=== PATIENT | male | born 1985 ===

== ENCOUNTER 2018-11-09 17:16 | Emergency (ER) | payer OTHER ==
[2018-11-09 17:57] VITALS: BMI 35.5
[2018-11-09 18:09] VITALS: O2SAT 96
--- NOTE | 2018-11-09 18:17 | ED PDOC ---
Arrival/HPI - General Chief Complaint: Back Pain Time Seen by Provider: 11/09/18 17:35 Historian: Patient - History of Present Illness Narrative History of Present Illness (Text): 11/09/18 18:11 33yo male with no pmhx who present with complaint of lower back pain that started yesterday. Describes pain as sharp and only with movement. States pain started while getting out of his car yesterday. Notes that he took 2tabs of Advil this morning without relieve. Denies pervious history, saddle anesthesia, focal weakness, urinary symptoms, hematuria, urinary/fecal incontinence, abdominal pain, fever, chills, nausea, vomiting, any other complaint. Past Medical History - Provider Review Nursing Documentation Reviewed: Yes Family/Social History - Physician Review Nursing Documentation Reviewed: Yes Family/Social History: Unknown Family HX Allergies/Home Meds Allergies/Adverse Reactions: Allergies No Known Allergies Allergy (Verified 11/09/18 18:10) Review of Systems - Physician Review All systems were reviewed & negative as marked: Yes - Review of Systems Constitutional: Normal Eyes: Normal ENT: Normal Respiratory: Normal Cardiovascular: Normal Gastrointestinal: Normal Genitourinary Male: Normal Musculoskeletal: Back Pain Skin: Normal Neurological: Normal Endocrine: Normal Hemo/Lymphatic: Normal Psychiatric: Normal Physical Exam Vital Signs Reviewed: Yes Vital Signs Temp Pulse Resp BP Pulse Ox 11/09/18 18:08 97.9 F 78 18 130/76 96 Temperature: Afebrile Blood Pressure: Normal Pulse: Regular Respiratory Rate: Normal Appearance: Positive for: Well-Appearing, Non-Toxic, Comfortable Pain Distress: None Mental Status: Positive for: Alert and Oriented X 3 - Systems Exam Head: Present: Atraumatic, Normocephalic Pupils: Present: PERRL Extroacular Muscles: Present: EOMI Conjunctiva: Present: Normal Mouth: Present: Moist Mucous Membranes Neck: Present: Normal Range of Motion Respiratory/Chest: Present: Clear to Auscultation, Good Air Exchange. No: Respiratory Distress, Accessory Muscle Use Cardiovascular: Present: Regular Rate and Rhythm, Normal S1, S2. No: Murmurs Abdomen: No: Tenderness, Distention, Peritoneal Signs Back: Present: Paraspinal Tenderness (Right paralumbar tenderness), Pain with Leg Raise (B/L legs). No: Midline Tenderness Upper Extremity: Present: Normal Inspection. No: Cyanosis, Edema Lower Extremity: Present: Normal Inspection. No: Edema Neurological: Present: GCS=15, CN II-XII Intact, Speech Normal Skin: Present: Warm, Dry, Normal Color. No: Rashes Psychiatric: Present: Alert, Oriented x 3, Normal Insight, Normal Concentration Medical Decision Making ED Course and Treatment: 11/09/18 20:03 33yo male in ED for right sided lower back pain x 2days. Hi pain was reproducible in ED. He was neurological intact. Ambulatory LS xray UA LS xray No acute finding UA - Moderate blood. No infection. PT denied UTI symptoms in ED Secondary to the hematuria, abdominal/pelvic CT was ordered Case was endorsed to Dr. To to f/u CT and dispo pt - RAD Interpretation Radiology Orders: 11/09/18 18:10 LS SPINE WITH OBL > 18 YRS OLD [RAD] Stat Disposition/Present on Arrival - Present on Arrival Any Indicators Present on Arrival: No History of DVT/PE: No History of Uncontrolled Diabetes: No Urinary Catheter: No History of Decub. Ulcer: No History Surgical Site Infection Following: None - Disposition Have Diagnosis and Disposition been Completed?: Yes Diagnosis: Back pain Disposition: HOME/ ROUTINE Disposition Time: 19:35 Patient Plan: Discharge Patient Problems: Current Active Problems Problem Status Onset Back pain Acute Condition: STABLE Discharge Instructions (ExitCare): Low Back Pain (DC) Additional Instructions: Follow up with your Doctor/Orthopedist Rest, Apply warm compress to the area Return to ED for any worsening symptoms Prescriptions: Cyclobenzaprine [Cyclobenzaprine HCl] 10 mg PO BID #10 tab Ibuprofen [Motrin Tab] 600 mg PO Q6 #15 tab Referrals: Michelle Hamilton MD [Medical Doctor] - Follow up with primary Brannon Padilla MD [Staff Provider] - Follow up with primary Monique Napier MD [Staff Provider] - Follow up with primary Forms: [employer] (German)
[2018-11-09 18:37] LABS: URINE APPEARANCE CLEAR (CLEAR); URINE BILIRUBIN NEGATIVE (NEGATIVE); URINE BLOOD MODERATE (NEGATIVE); URINE COLOR YELLOW (YELLOW); URINE GLUCOSE (UA) NEGATIVE (NEGATIVE); URINE LEUKOCYTE ESTERASE NEGATIVE Leu/uL (NEGATIVE); URINE PROTEIN NEGATIVE mg/dL (<30 mg/dL); URINE UROBILINOGEN 0.2 E.U./dL (<1 E.U./dL)
[2018-11-09 18:41] LABS: URINE WBC NEGATIVE /hpf (0-6)
--- NOTE | 2018-11-09 20:02 | ED PDOC ---
Physical Exam Vital Signs Temp Pulse Resp BP Pulse Ox 11/09/18 18:08 97.9 F 78 18 130/76 96 Medical Decision Making ED Course and Treatment: 11/09/18 20:01 Signout received from [facility] with patient pending CT a/p. 11/09/18 23:08 CT a/p reveals no kidney stones, hydronephrosis, or perinephric stranding. Patient advised to continue conservative management at home alongside OTC analgesics. He demonstrates understanding and will follow up with his PCP. He is stable for discharge. - Lab Interpretations Lab Results: Lab Results 11/09/18 18:28: Urine Color Yellow, Urine Appearance Clear, Urine pH 6.0, Ur Specific [place] >= 1.030, Urine Protein Negative, Urine Glucose (UA) Negative, Urine Ketones Negative, Urine Blood Moderate H, Urine Nitrate Negative, Urine Bilirubin Negative, Urine Urobilinogen 0.2, Ur Leukocyte Esterase Negative, Urine RBC 2 - 5 H, Urine WBC Negative, Ur Epithelial Cells None I have reviewed the lab results: Yes - RAD Interpretation Radiology Orders: 11/09/18 18:10 LS SPINE WITH OBL > 18 YRS OLD [RAD] Stat 11/09/18 19:54 ABD & PELVIS W/O PO OR IV CONT [CT] Stat - Medication Orders Current Medication Orders: Discontinued Medications Cyclobenzaprine HCl (Flexeril) 10 mg PO STAT STA Stop: 11/09/18 18:11 Last Admin: 11/09/18 18:21 Dose: 10 mg Ketorolac Tromethamine (Toradol) 60 mg IM STAT STA Stop: 11/09/18 18:11 Last Admin: 11/09/18 18:21 Dose: 60 mg MAR Pain Assessment Document 11/09/18 18:21 ([facility]18 18[id number] Pain Reassessment Is this a pain reassessment? Yes Sleep Is patient sleeping during reassessment? No Presence of Pain Presence of Pain Yes Pain Scale Used Protocol: PSCALES Pain Scale Used Numeric IM Administration Charges Document 11/09/18 18:21 (Rec: 11/09/18 18:21 [id number] Charges for Administration # of IM Administrations 1 Disposition/Present on Arrival - Present on Arrival Any Indicators Present on Arrival: No History of DVT/PE: No History of Uncontrolled Diabetes: No Urinary Catheter: No History of Decub. Ulcer: No History Surgical Site Infection Following: None - Disposition Have Diagnosis and Disposition been Completed?: Yes Diagnosis: Back pain Disposition: HOME/ ROUTINE Disposition Time: 23:08 Patient Plan: Discharge Condition: STABLE Discharge Instructions (ExitCare): Low Back Pain (DC) Additional Instructions: Follow up with your Doctor/Orthopedist Rest, Apply warm compress to the area Return to ED for any worsening symptoms Prescriptions: Cyclobenzaprine [Cyclobenzaprine HCl] 10 mg PO BID #10 tab RX: Ibuprofen [Motrin Tab] 600 mg PO Q6 #15 tab Referrals: Monique Napier MD [Staff Provider] - Follow up with primary Brannon Padilla MD [Staff Provider] - Follow up with primary Michelle Hamilton MD [Medical Doctor] - Follow up with primary Forms: [employer] (Persian)
[2018-11-09 22:14] VITALS: BP 123/67; PULSE 63; RESP 20; TEMP 97.5
--- NOTE | 2018-11-10 09:15 | CT ---
Date of service: 11/09/2018 PROCEDURE: CT Abdomen and Pelvis without intravenous contrast HISTORY: hematuria/back pain COMPARISON: None. TECHNIQUE: Without contrast.. Contrast dose: Radiation dose: Total exam DLP = 1140.96 mGy-cm. This CT exam was performed using one or more of the following dose reduction techniques: Automated exposure control, adjustment of the mA and/or kV according to patient size, and/or use of iterative reconstruction technique. FINDINGS: LOWER THORAX: Unremarkable. LIVER: Unremarkable. No gross lesion or ductal dilatation. GALLBLADDER AND BILE DUCTS: Unremarkable. PANCREAS: Unremarkable. No gross lesion or ductal dilatation. SPLEEN: Unremarkable. ADRENALS: Unremarkable. No mass. KIDNEYS AND URETERS: Unremarkable. No hydronephrosis. No solid mass. VASCULATURE: Unremarkable. No aortic aneurysm. No aortic atherosclerotic calcification or mural plaque present. BOWEL: Unremarkable. No obstruction. No gross mural thickening. APPENDIX: Unremarkable. Normal appendix. PERITONEUM: Unremarkable. No free fluid. No free air. LYMPH NODES: Unremarkable. No enlarged lymph nodes. BLADDER: Unremarkable. REPRODUCTIVE: Unremarkable. BONES: No acute fracture. OTHER FINDINGS: The report concurs with the preliminary [facility] report IMPRESSION: Unremarkable non contrast enhanced CT of the abdomen and pelvis.
--- NOTE | 2018-11-10 11:22 | RAD ---
Date of service: 11/09/2018 PROCEDURE: Radiographs of the Lumbar Spine. HISTORY: back pain COMPARISON: No prior. FINDINGS: BONES: Normal alignment. No listhesis. No fracture. DISC SPACES: Unremarkable. OTHER FINDINGS: None. IMPRESSION: Unremarkable radiographs of the lumbar spine.
== END 2018-11-09 23:30 | disposition home or self-care (01) ==
LOC: ED 17:16
DX: M54.5 Low back pain (principal)
CPT/HCPCS: 72110; 74176; 81001; 96372; 99282; J1885

== ENCOUNTER 2018-12-02 09:21 | Inpatient (IN) | payer OTHER ==
[2018-12-02 09:22] VITALS: BMI 35.5
--- NOTE | 2018-12-02 10:02 | ED PDOC ---
Arrival/HPI - General Chief Complaint: Abnormal Skin Integrity Time Seen by Provider: 12/02/18 09:45 Historian: Patient - History of Present Illness Narrative History of Present Illness (Text): 12/02/18 9:53 Patient is a 33 year old male, with no significant past medical history, presents to the ED complaining of rectal pain since 5 days. Patient informs visiting his PMD Dr. Cisneros for the following symptoms and was started on Keflex since 3 days (Sunday). Patient informs compliance with the medication with no improvement to symptoms. Patient denies any history of similar symptoms. Patient describes the pain as dull, achy localized to the right of his anus. As per patient, symptoms are worse with bowel movement and sitting on his buttocks. Patient denies any pain medication at home. Patient denies any other associated somatic complaints. Patient denies any fever, chills, nausea, vomiting, diarrhea, abdominal pain, constipation, chest pain, dizziness, back pain, rectal bleeding, urinary symptoms or any other complaints. PMD: Dr. Cisneros Time/Duration: < week Symptom Onset: Gradual Symptom Course: Unchanged Quality: Aching Activities at Onset: Light Context: Home Past Medical History - Provider Review Nursing Documentation Reviewed: Yes - Psychiatric Hx Substance Use: No - Anesthesia Hx Anesthesia: No Hx Anesthesia Reactions: No Hx Malignant Hyperthermia: No Family/Social History - Physician Review Nursing Documentation Reviewed: Yes Family/Social History: No Known Family HX Smoking Status: Current Some Days Smoker Hx Alcohol Use: No Hx Substance Use: No Allergies/Home Meds Allergies/Adverse Reactions: Allergies No Known Allergies Allergy (Verified 11/09/18 18:10) Home Medications: Home Meds Medication Instructions Recorded Confirmed Cephalexin [cephalexin] 500 mg PO BID 12/02/18 12/02/18 Review of Systems - Physician Review All systems were reviewed & negative as marked: Yes - Review of Systems Constitutional: Normal. absent: Fevers Eyes: Normal. absent: Vision Changes ENT: Normal, Sinus Congestion Respiratory: Normal. absent: SOB, Cough Cardiovascular: Normal. absent: Chest Pain, Palpitations Gastrointestinal: Other (rectal pain). absent: Abdominal Pain, Constipation, Diarrhea, Nausea, Vomiting Genitourinary Male: Normal. absent: Dysuria, Hematuria, Urinary Output Changes Musculoskeletal: Normal. absent: Back Pain, Neck Pain Skin: Abscess. absent: Rash Neurological: Normal. absent: Headache, Dizziness Endocrine: Normal. absent: Diaphoresis Hemo/Lymphatic: Normal Psychiatric: Normal. absent: Anxiety Physical Exam Vital Signs Reviewed: Yes Vital Signs Temp Pulse Resp BP Pulse Ox 12/02/18 09:22 97.6 F 78 18 135/89 98 Temperature: Afebrile Blood Pressure: Normal Pulse: Regular Respiratory Rate: Normal Appearance: Positive for: Well-Appearing, Non-Toxic, Comfortable Pain Distress: None Mental Status: Positive for: Alert and Oriented X 3 - Systems Exam Head: Present: Atraumatic, Normocephalic Pupils: Present: PERRL Extroacular Muscles: Present: EOMI Conjunctiva: Present: Normal Respiratory/Chest: Present: Clear to Auscultation, Good Air Exchange. No: Respiratory Distress, Accessory Muscle Use Cardiovascular: Present: Regular Rate and Rhythm, Normal S1, S2. No: Murmurs Abdomen: No: Tenderness, Distention, Peritoneal Signs Rectal: Present: Rectal Tenderness, Normal Rectal Tone, Other (induration to the right side of his anus, no fluctuance, no redness noted. ). No: Hemorrhoids, Nodule/Mass/Lesions Back: Present: Normal Inspection Upper Extremity: Present: Normal Inspection. No: Cyanosis, Edema Lower Extremity: Present: Normal Inspection. No: Edema Neurological: Present: GCS=15, CN II-XII Intact, Speech Normal Skin: Present: Warm, Dry, Normal Color. No: Rashes Psychiatric: Present: Alert, Oriented x 3, Normal Insight, Normal Concentration Medical Decision Making ED Course and Treatment: 12/02/18 09:57 Initial Plan: * CBC, CMP * Coags * Pelvis CT with IV contrast * Toradol * Reassess and Disposition Labwork unremarkable Patient reports resolution of symptoms with toradol 13:14 Spoke to pharmacy resident, who is aware and will evaluate patient at bedside in the ED. 15:00 Resident will start patient on IV antibiotics and fluids, recommends admission to medical service. 16:[address] Diego who accepts patient to his service with diagnosis of perianal abscess, with general surgery consult. - Lab Interpretations Lab Results: 12/02/18 10:20 12/02/18 10:20 Lab Results 12/02/18 10:30: Urine Color Yellow, Urine Appearance Clear, Urine pH 6.0, Ur Specific [place] >= 1.030, Urine Protein Negative, Urine Glucose (UA) Negative, Urine Ketones Negative, Urine Blood Large H, Urine Nitrate Negative, Urine Bilirubin Negative, Urine Urobilinogen 0.2, Ur Leukocyte Esterase Negative, Urine RBC 25 - 30 H, Urine WBC 1 - 3, Ur Epithelial Cells None, Urine Bacteria Mod 12/02/18 10:20: PT 11.9, INR 1.05, APTT 37.1 12/02/18 10:20: Sodium 138, Potassium 5.0, Chloride 104, Carbon Dioxide 26, Anion Gap 14, BUN 11, Creatinine 0.8, Est GFR ( Amer) > 60, Est GFR (Non- Af Amer) > 60, Random Glucose 95, Calcium 9.5, Total Bilirubin 0.4, AST 40, ALT 77 H, Alkaline Phosphatase 66, Total Protein 8.0, Albumin 4.6, Globulin 3.4, Albumin/Globulin Ratio 1.3 12/02/18 10:20: WBC 9.8, RBC 4.96, Hgb 15.6, Hct 45.3, MCV 91.3, MCH 31.5, MCHC 34.4, RDW 13.0, Plt Count 351, MPV 9.7, Neut % (Auto) 68.0, Lymph % (Auto) 20.7 L, [place] % (Auto) 9.8 H, Eos % (Auto) 1.4 L, Baso % (Auto) 0.1, Lymph # (Auto) 2.0, [place] # (Auto) 1.0 H, Eos # (Auto) 0.1, Baso # (Auto) 0.01, Absolute Neuts (auto) 6.65 H I have reviewed the lab results: Yes - RAD Interpretation Narrative RAD Interpretations (Text): 12/02/18 13:[address] reviewed by radiologist, shows: FINDINGS: LOWER THORAX: Mild passive/dependent type atelectasis both posterior lower lung german. Heart size within range of normal. No significant pericardial effusion. Small hiatal hernia. LIVER: Liver is enlarged measuring approximately 20 cm in CC dimension. Mild to moderate fatty hepatic infiltration.. No obvious hepatic masses or collections. Portal and splenic veins are opacified. GALLBLADDER AND BILE DUCTS: Gallbladder physiologically distended. No evidence of intraluminal gallbladder calculi. PANCREAS: Unremarkable. No mass. No ductal dilatation. SPLEEN: Unremarkable. No splenomegaly. There is a small splenule adjacent to the anterior main body of the spleen. ADRENALS: No adrenal lesions. KIDNEYS AND URETERS: Kidneys demonstrate symmetric nephrograms. No evidence of nephrolithiasis or hydronephrosis. BLADDER: Urinary bladder is incompletely distended which partially accounts for minimal wall thickness. Muscular hypertrophy may contribute. REPRODUCTIVE: Unremarkable. APPENDIX: Normal appendix. BOWEL: Evaluation of the bowel is somewhat limited due to the lack of oral contrast material. Stomach is incompletely distended. Visualized loops of small bowel exhibit normal contour and caliber. No evidence of acute mechanical small bowel obstruction. Stool and air seen throughout the large bowel. Scattered colonic diverticula present. There is a small elliptical shaped soft tissue density in the right perianal region that the measures approximately 2.5 x 11 mm and contains a eccentric smaller elliptical shaped low-attenuation focus that measures approximately 8.7 x 4.8 mm likely representing a phlegmon with a internal smaller abscess. PERITONEUM: Unremarkable. No fluid collection. No free air.. Tiny fat containing umbilical hernia small fat containing bilateral inguinal hernias are present. LYMPH NODES: Unremarkable. No enlarged lymph nodes. VASCULATURE: Unremarkable. No aortic aneurysm. No aortic atherosclerotic calcification or mural plaque present. BONES: Minor multilevel degenerative spondylosis of the lower thoracic and lumbar spine. OTHER FINDINGS: None. IMPRESSION: There is a small perianal phlegmon at contains a smaller slightly eccentric abscess collection. The hepatomegaly with fatty infiltration. Radiology Orders: 12/02/18 09:54 PELVIS W/IV CONTRAST ONLY [CT] Stat Intelligence Officer: Radiologist - PA / [employer] OPERATOR / Resident Statement MD/DO has reviewed & agrees with the documentation as recorded. - Scribe Statement The provider has reviewed the documentation as recorded by the Moniibivelisse Velez. All medical record entries made by the Yolis were at my direction and personally dictated by me. I have reviewed the chart and agree that the record a ccurately reflects my personal performance of the history, physical exam, medical decision making, and the department course for this patient. I have also personally directed, reviewed, and agree with the discharge instructions and disposition. Disposition/Present on Arrival - Present on Arrival Any Indicators Present on Arrival: No History of DVT/PE: No History of Uncontrolled Diabetes: No Urinary Catheter: No History of Decub. Ulcer: No History Surgical Site Infection Following: None - Disposition Have Diagnosis and Disposition been Completed?: Yes Diagnosis: Perianal abscess Disposition: HOSPITALIZED Disposition Time: 15:00 Patient Plan: Admission Condition: STABLE
[2018-12-02 10:40] LABS: BASO # 0.01 K/mm3 (0.0-2.0); BASO % 0.1 % (0.0-3.0); EOS # 0.1 (0.0-0.7); EOS % 1.4 % (1.5-5.0); HEMOGLOBIN 15.6 g/dL (14.0-18.0); LYMPH % 20.7 % (22.0-35.0); MEAN CELL VOLUME 91.3 fl (80.0-105.0); MEAN CORPUSCULAR HEMOGLOBIN 31.5 pg (25.0-35.0); MEAN CORPUSCULAR HGB CONC 34.4 g/dl (31.0-37.0); MEAN PLATELET VOLUME 9.7 fl (7.0-11.0); MONO % 9.8 % (1.0-6.0); RBC 4.96 10^6/uL (3.5-6.1); WHITE BLOOD COUNT 9.8 10^3/uL (4.5-11.0)
[2018-12-02 10:41] LABS: URINE BILIRUBIN NEGATIVE (NEGATIVE); URINE BLOOD LARGE (NEGATIVE); URINE GLUCOSE (UA) NEGATIVE (NEGATIVE); URINE LEUKOCYTE ESTERASE NEGATIVE Leu/uL (NEGATIVE); URINE PROTEIN NEGATIVE mg/dL (<30 mg/dL); URINE UROBILINOGEN 0.2 E.U./dL (<1 E.U./dL)
[2018-12-02 10:42] LABS: URINE APPEARANCE CLEAR (CLEAR); URINE COLOR YELLOW (YELLOW)
[2018-12-02 10:45] LABS: INR 1.05; PARTIAL THROMBOPLASTIN TIME 37.1 Seconds (26.9-38.3); PROTHROMBIN TIME 11.9 SECONDS (9.4-12.5)
[2018-12-02 10:46] LABS: ALB/GLOB RATIO 1.3 (1.1-1.8); ALBUMIN 4.6 g/dL (3.0-4.8); ALT/SGPT 77 U/L (7-56); AST/SGOT 40 U/L (17-59); BLOOD UREA NITROGEN 11 mg/dL (7-21); CALCIUM 9.5 mg/dL (8.4-10.5); GFR NON-AFRICAN AMERICAN > 60
[2018-12-02 11:02] LABS: URINE BACTERIA MOD /hpf; URINE RBC 25 - 30 /hpf (0-2)
--- NOTE | 2018-12-02 13:02 | CT ---
Date of service: 2018-12-02 12:02:52 PROCEDURE: CT Abdomen and Pelvis with Oral contrast. HISTORY: Possible right-sided perianal/rectal abscess. COMPARISON: Comparison made with prior study 11/09/2018. TECHNIQUE: Contiguous axial images of the abdomen and pelvis. Oral contrast was administered. No IV contrast given. Coronal and Sagittal reformats generated. Radiation dose: Total exam DLP = 1038.57 mGy-cm. This CT exam was performed using one or more of the following dose reduction techniques: Automated exposure control, adjustment of the mA and/or kV according to patient size, and/or use of iterative reconstruction technique. FINDINGS: LOWER THORAX: Mild passive/dependent type atelectasis both posterior lower lung german. Heart size within range of normal. No significant pericardial effusion. Small hiatal hernia. LIVER: Liver is enlarged measuring approximately 20 cm in CC dimension. Mild to moderate fatty hepatic infiltration.. No obvious hepatic masses or collections. Portal and splenic veins are opacified. GALLBLADDER AND BILE DUCTS: Gallbladder physiologically distended. No evidence of intraluminal gallbladder calculi. PANCREAS: Unremarkable. No mass. No ductal dilatation. SPLEEN: Unremarkable. No splenomegaly. There is a small splenule adjacent to the anterior main body of the spleen. ADRENALS: No adrenal lesions. KIDNEYS AND URETERS: Kidneys demonstrate symmetric nephrograms. No evidence of nephrolithiasis or hydronephrosis. BLADDER: Urinary bladder is incompletely distended which partially accounts for minimal wall thickness. Muscular hypertrophy may contribute. REPRODUCTIVE: Unremarkable. APPENDIX: Normal appendix. BOWEL: Evaluation of the bowel is somewhat limited due to the lack of oral contrast material. Stomach is incompletely distended. Visualized loops of small bowel exhibit normal contour and caliber. No evidence of acute mechanical small bowel obstruction. Stool and air seen throughout the large bowel. Scattered colonic diverticula present. There is a small elliptical shaped soft tissue density in the right perianal region that the measures approximately 2.5 x 11 mm and contains a eccentric smaller elliptical shaped low-attenuation focus that measures approximately 8.7 x 4.8 mm likely representing a phlegmon with a internal smaller abscess. PERITONEUM: Unremarkable. No fluid collection. No free air.. Tiny fat containing umbilical hernia small fat containing bilateral inguinal hernias are present. LYMPH NODES: Unremarkable. No enlarged lymph nodes. VASCULATURE: Unremarkable. No aortic aneurysm. No aortic atherosclerotic calcification or mural plaque present. BONES: Minor multilevel degenerative spondylosis of the lower thoracic and lumbar spine. OTHER FINDINGS: None. IMPRESSION: There is a small perianal phlegmon at contains a smaller slightly eccentric abscess collection. The hepatomegaly with fatty infiltration.
--- NOTE | 2018-12-02 14:55 | CP.PCM.CON ---
History of Present Illness - History of Present Illness History of Present Illness: Surgery consult note, Dr Chandra Reason for consult: Perianal phlegom 33 y/o male with no significant PMH presents to ED with perianal pain x5 days. It's dull, intermittent, 9/10 at worst, exacerbated by walking or prolonged sitting, partially relieved with motrin and cold compressions, associated with wormth around the area. Patient denied any trauma/infection, no prior similar symptoms. Patient was seen by his PMD who prescribed keflex with no improvement for the past 3 days. He admits to foul smelling urine for the past 2 weeks with no dysurea/urgency/frequency. Patient denied any focal symptoms, paresthesia, muscle weakness, fever, chills, CP, SOB, abdominal pain, changes in bowel movement, N/V/D, hematochezia, melena, hematuria. ROS reviewed with pertinent positives as above PMH: denied PSH: denied Meds: keflex, ibuprofen All: NKDA FH: father with DM, mom with breast CA SH: occasionally drinks ETOH, somkes <10 cigarettes/day, denied illicit drug use Past Patient History - Past Social History Smoking Status: Current Some Days Smoker - PSYCHIATRIC Hx Substance Use: No - SURGICAL HISTORY Hx Surgeries: No - ANESTHESIA Hx Anesthesia: No Hx Anesthesia Reactions: No Hx Malignant Hyperthermia: No Meds Allergies/Adverse Reactions: Allergies Allergy/AdvReac Type Severity Reaction Status Date / Time No Known Allergies Allergy Verified 11/09/18 18:10 Physical Exam - Constitutional Appears: Well, No Acute Distress - Head Exam Head Exam: ATRAUMATIC, NORMAL INSPECTION, NORMOCEPHALIC - Eye Exam Eye Exam: EOMI, Normal appearance, PERRL Pupil Exam: NORMAL ACCOMODATION, PERRL - ENT Exam ENT Exam: Mucous Membranes Moist, Normal Exam - Neck Exam Neck exam: Positive for: Normal Inspection - Respiratory Exam Respiratory Exam: Clear to Auscultation Bilateral, NORMAL BREATHING PATTERN - Cardiovascular Exam Cardiovascular Exam: REGULAR RHYTHM, +S1, +S2 - GI/Abdominal Exam GI & Abdominal Exam: Normal Bowel Sounds, Soft. absent: Guarding, Hernia, Organomegaly, Rebound, Rigid, Tenderness - Rectal Exam Additional comments: perianal subcutaneous mass at 2'oclock position about 1.5 cm in diameter. tender to palpate, intact skin, no erythema, no wound/fistula, no discharge. normal rectal tone - Extremities Exam Extremities exam: Positive for: normal capillary refill, normal inspection, pedal pulses present - Neurological Exam Neurological exam: Alert, Oriented x3 - Psychiatric Exam Psychiatric exam: Normal Affect, Normal Mood - Skin Skin Exam: Dry, Intact, Normal Color, Warm Results - Vital Signs Recent Vital Signs: Last Vital Signs Temp 97.6 F 12/02/18 09:22 Pulse 69 12/02/18 13:18 Resp 18 12/02/18 13:18 BP 133/96 H 12/02/18 13:18 Pulse Ox 97 12/02/18 13:18 - Labs Result Diagrams: 12/02/18 10:20 12/02/18 10:20 Labs: Laboratory Results - last 24 hr 12/02/18 12/02/18 12/02/18 10:20 10:20 10:20 WBC 9.8 RBC 4.96 Hgb 15.6 Hct 45.3 MCV 91.3 MCH 31.5 MCHC 34.4 RDW 13.0 Plt Count 351 MPV 9.7 Neut % (Auto) 68.0 Lymph % (Auto) 20.7 L [place] % (Auto) 9.8 H Eos % (Auto) 1.4 L Baso % (Auto) 0.1 Lymph # (Auto) 2.0 [place] # (Auto) 1.0 H Eos # (Auto) 0.1 Baso # (Auto) 0.01 Absolute Neuts (auto) 6.65 H PT 11.9 INR 1.05 APTT 37.1 Sodium 138 Potassium 5.0 Chloride 104 Carbon Dioxide 26 Anion Gap 14 BUN 11 Creatinine 0.8 Est GFR ( Amer) > 60 Est GFR (Non-Af Amer) > 60 Random Glucose 95 Calcium 9.5 Total Bilirubin 0.4 AST 40 ALT 77 H Alkaline Phosphatase 66 Total Protein 8.0 Albumin 4.6 Globulin 3.4 Albumin/Globulin Ratio 1.3 Urine Color Urine Appearance Urine pH Ur Specific [place] Urine Protein Urine Glucose (UA) Urine Ketones Urine Blood Urine Nitrate Urine Bilirubin Urine Urobilinogen Ur Leukocyte Esterase Urine RBC Urine WBC Ur Epithelial Cells Urine Bacteria 12/02/18 10:30 WBC RBC Hgb Hct MCV MCH MCHC RDW Plt Count MPV Neut % (Auto) Lymph % (Auto) [place] % (Auto) Eos % (Auto) Baso % (Auto) Lymph # (Auto) [place] # (Auto) Eos # (Auto) Baso # (Auto) Absolute Neuts (auto) PT INR APTT Sodium Potassium Chloride Carbon Dioxide Anion Gap BUN Creatinine Est GFR ( Amer) Est GFR (Non-Af Amer) Random Glucose Calcium Total Bilirubin AST ALT Alkaline Phosphatase Total Protein Albumin Globulin Albumin/Globulin Ratio Urine Color Yellow Urine Appearance Clear Urine pH 6.0 Ur Specific [place] >= 1.030 Urine Protein Negative Urine Glucose (UA) Negative Urine Ketones Negative Urine Blood Large H Urine Nitrate Negative Urine Bilirubin Negative Urine Urobilinogen 0.2 Ur Leukocyte Esterase Negative Urine RBC 25 - 30 H Urine WBC 1 - 3 Ur Epithelial Cells None Urine Bacteria Mod Assessment & Plan - Assessment and Plan (Free Text) Assessment: 33 y/o male with no significant PMH presents to ED with perianal pain x5 days. Failed outpatient keflex treatment Plan: -patient in NAD, hemodynamically stable, afebrile, no leukocytosis, no open wound/fisutla -CT A/P: small perianal phlegmon at contains a smaller slightly eccentric abscess collection -started cipro, flagyl, IVF -sitz bath, warm compressions, pain meds prn -regular diet -further recs per Dr Stephanie Gonzales DO
[2018-12-02] MEDS ORDERED: Sodium Chloride 0.9% 1,000 ML IV SCH (15:30)
[2018-12-02] MEDS: metroNIDAZOLE IV 500 mg/100 ml 500 MG/100 ML BAG IVPB SCH ×2 (15:41→21:26)
[2018-12-02] MEDS ORDERED: Ciprofloxacin 200mg/100ml D5W 100 ML IVPB SCH (22:00)
[2018-12-03] MEDS: metroNIDAZOLE IV 500 mg/100 ml 500 MG/100 ML BAG IVPB SCH (05:07)
--- NOTE | 2018-12-03 06:39 | CP.PCM.HP ---
History of Present Illness - History of Present Illness History of Present Illness: 33yo male with no PMHx presented with perianal pain x 5 days. 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 The pain was exacerbated by walking or prolonged sitting and alleviated by motrin and c old compressions. Patient denied any trauma/infection, no prior similar symptoms. Patient was seen by his PMD who prescribed keflex with no improvement for the past 3 days. He admits to foul smelling urine for the past 2 weeks with no dysurea/urgency/frequency. Patient denied any focal symptoms, paresthesia, muscle weakness, fever, chills, CP, SOB, abdominal pain, changes in bowel movement, N/V/D, hematochezia, melena, hematuria. Overnight patient had no acute complaints and this AM he reported pain was much improved. 12 point ROS reviewed and unremarkable unless stated above PMHx: denied PSurgHx: denied Meds: as per EMR All: NKDA FamHx: father with DM, mom with breast CA SocHx: occasionally drinks ETOH, somkes <10 cigarettes/day, denied illicit drug use Present on Admission - Present on Admission Any Indicators Present on Admission: No Review of Systems - Review of Systems All systems: reviewed and no additional remarkable complaints except Review of Systems: as per HPI Past Patient History - Past Social History Smoking Status: Current Some Days Smoker - CARDIAC Hx Cardiac Disorders: No - PULMONARY Hx Respiratory Disorders: No - NEUROLOGICAL Hx Neurological Disorder: No - HEENT Hx HEENT Problems: No Other/Comment: wears glasses - RENAL Hx Chronic Kidney Disease: No - ENDOCRINE/METABOLIC Hx Endocrine Disorders: No - HEMATOLOGICAL/ONCOLOGICAL Hx Blood Disorders: No - INTEGUMENTARY Hx Dermatological Problems: No - MUSCULOSKELETAL/RHEUMATOLOGICAL Hx Musculoskeletal Disorders: No Hx Falls: No - GASTROINTESTINAL Hx Gastrointestinal Disorders: No - GENITOURINARY/GYNECOLOGICAL Hx Genitourinary Disorders: No - PSYCHIATRIC Hx Substance Use: No - SURGICAL HISTORY Hx Surgeries: No - ANESTHESIA Hx Anesthesia: No Hx Anesthesia Reactions: No Hx Malignant Hyperthermia: No Meds Home Medications: Home Medication List Medication Instructions Recorded Confirmed Type Amoxicillin/Clavulanate [Augmentin 1 tab PO BID 7 Days #14 tab 12/03/18 Rx 875 MG-125 MG] Doxycycline Hyclate [Doryx] 100 mg PO BID 7 Days #14 cap 12/03/18 Rx Allergies/Adverse Reactions: Allergies Allergy/AdvReac Type Severity Reaction Status Date / Time No Known Allergies Allergy Verified 11/09/18 18:10 Physical Exam - Constitutional Appears: Non-toxic, No Acute Distress - Head Exam Head Exam: ATRAUMATIC, NORMAL INSPECTION, NORMOCEPHALIC - Eye Exam Eye Exam: EOMI, Normal appearance, PERRL. absent: Conjunctival injection, Scleral icterus - ENT Exam ENT Exam: Mucous Membranes Moist - Neck Exam Neck exam: Positive for: Full Rom, Normal Inspection. Negative for: Lymphadenopathy - Respiratory Exam Respiratory Exam: Clear to Auscultation Bilateral, NORMAL BREATHING PATTERN. a bsent: Accessory Muscle Use, Rales, Rhonchi, Wheezes, Respiratory Distress - Cardiovascular Exam Cardiovascular Exam: REGULAR RHYTHM, +S1, +S2 - GI/Abdominal Exam GI & Abdominal Exam: Normal Bowel Sounds, Soft. absent: Distended, Firm, Tenderness - Rectal Exam Additional comments: perianal subq mass ~1-2cm diameter; tender with no erythema/discharge - Extremities Exam Extremities exam: Positive for: normal capillary refill, normal inspection, pedal pulses present. Negative for: pedal edema - Back Exam Back exam: NORMAL INSPECTION. absent: rash noted, tenderness - Neurological Exam Neurological exam: Alert, CN II-XII Intact, Oriented x3 - Psychiatric Exam Psychiatric exam: Normal Affect, Normal Mood - Skin Skin Exam: Dry, Intact, Normal Color, Warm Results - Vital Signs Recent Vital Signs: Last Vital Signs Temp 97.6 F 12/02/18 09:22 Pulse 69 12/02/18 13:18 Resp 18 12/02/18 22:50 BP 133/96 H 12/02/18 13:18 Pulse Ox 98 12/02/18 19:00 - Labs Result Diagrams: 12/02/18 10:20 12/02/18 10:20 Labs: Laboratory Results - last 24 hr 12/02/18 12/02/18 12/02/18 10:20 10:20 10:20 WBC 9.8 RBC 4.96 Hgb 15.6 Hct 45.3 MCV 91.3 MCH 31.5 MCHC 34.4 RDW 13.0 Plt Count 351 MPV 9.7 Neut % (Auto) 68.0 Lymph % (Auto) 20.7 L [place] % (Auto) 9.8 H Eos % (Auto) 1.4 L Baso % (Auto) 0.1 Lymph # (Auto) 2.0 [place] # (Auto) 1.0 H Eos # (Auto) 0.1 Baso # (Auto) 0.01 Absolute Neuts (auto) 6.65 H PT 11.9 INR 1.05 APTT 37.1 Sodium 138 Potassium 5.0 Chloride 104 Carbon Dioxide 26 Anion Gap 14 BUN 11 Creatinine 0.8 Est GFR ( Amer) > 60 Est GFR (Non-Af Amer) > 60 Random Glucose 95 Calcium 9.5 Total Bilirubin 0.4 AST 40 ALT 77 H Alkaline Phosphatase 66 Total Protein 8.0 Albumin 4.6 Globulin 3.4 Albumin/Globulin Ratio 1.3 Urine Color Urine Appearance Urine pH Ur Specific [place] Urine Protein Urine Glucose (UA) Urine Ketones Urine Blood Urine Nitrate Urine Bilirubin Urine Urobilinogen Ur Leukocyte Esterase Urine RBC Urine WBC Ur Epithelial Cells Urine Bacteria 12/02/18 10:30 WBC RBC Hgb Hct MCV MCH MCHC RDW Plt Count MPV Neut % (Auto) Lymph % (Auto) [place] % (Auto) Eos % (Auto) Baso % (Auto) Lymph # (Auto) [place] # (Auto) Eos # (Auto) Baso # (Auto) Absolute Neuts (auto) PT INR APTT Sodium Potassium Chloride Carbon Dioxide Anion Gap BUN Creatinine Est GFR ( Amer) Est GFR (Non-Af Amer) Random Glucose Calcium Total Bilirubin AST ALT Alkaline Phosphatase Total Protein Albumin Globulin Albumin/Globulin Ratio Urine Color Yellow Urine Appearance Clear Urine pH 6.0 Ur Specific [place] >= 1.030 Urine Protein Negative Urine Glucose (UA) Negative Urine Ketones Negative Urine Blood Large H Urine Nitrate Negative Urine Bilirubin Negative Urine Urobilinogen 0.2 Ur Leukocyte Esterase Negative Urine RBC 25 - 30 H Urine WBC 1 - 3 Ur Epithelial Cells None Urine Bacteria Mod Assessment & Plan - Assessment and Plan (Free Text) Assessment: - small perianal phlegmon - tobacco abuse Plan: Patient admitted to med/surg. General surgery consulted. Pelvic CT revealed small perianal phlegmon containing smaller slightly eccentric abscess collection. Patient afebrile with no leukocytosis and no open wound/fistula. Surgery recommended sitz bath, warm compressions and prn pain medications. ID consulted who started patient on Vanc and Zosyn. Patient counseled on the importance of smoking cessation. Bowel regimen in place and patient tolerated good PO intake. Will continue to monitor at this time. Discussed with Dr. Murtaza Sweeney PGY3
[2018-12-03 09:00] VITALS: BP 99/63; PULSE 59; RESP 20; TEMP 98.2; O2SAT 99
--- NOTE | 2018-12-03 09:11 | CP.PCM.PN ---
Subjective - Date & Time of Evaluation Date of Evaluation: 12/03/18 Time of Evaluation: 07:10 - Subjective Subjective: Surgery progress note, Dr Brown Patient seen and examined at bedside. He reports some improvement in perianal pain. He has regular BM, tolerating diet, ambulating OOB. Patient denied fever, chills, abd pain, change in bowel movement, rectal bleeding. Objective - Vital Signs/Intake and Output Vital Signs (last 24 hours): Temp Pulse Resp BP Pulse Ox 97.6 F 69 18 133/96 H 98 12/02/18 09:22 12/02/18 13:18 12/02/18 22:50 12/02/18 13:18 12/02/18 19:00 - Medications Medications: Current Medications Metronidazole (Flagyl) 500 mg in 100 mls @ 100 mls/hr IVPB Q8 [facility]; Protocol Last Admin: 12/03/18 05:07 Dose: 100 mls/hr Sodium Chloride (Sodium Chloride 0.9%) 1,000 mls @ 100 mls/hr IV .Q10H [facility] Last Admin: 12/03/18 05:19 Dose: 100 mls/hr Ibuprofen (Motrin Tab) 600 mg PO Q6H PRN PRN Reason: Pain, moderate (4-7) Ketorolac Tromethamine (Toradol) 15 mg IVP Q6H PRN PRN Reason: Pain, severe (8-10) - Labs Labs: 12/02/18 10:20 12/02/18 10:20 PT 11.9 SECONDS (9.4-12.5) 12/02/18 10:20 INR 1.05 12/02/18 10:20 APTT 37.1 Seconds (26.9-38.3) 12/02/18 10:20 - Constitutional Appears: Well, No Acute Distress - Head Exam Head Exam: ATRAUMATIC, NORMAL INSPECTION, NORMOCEPHALIC - Eye Exam Eye Exam: EOMI, Normal appearance, PERRL Pupil Exam: NORMAL ACCOMODATION, PERRL - ENT Exam ENT Exam: Mucous Membranes Moist, Normal Exam - Cardiovascular Exam Cardiovascular Exam: REGULAR RHYTHM, +S1, +S2. absent: Murmur - GI/Abdominal Exam GI & Abdominal Exam: Soft, Normal Bowel Sounds. absent: Guarding, Rigid, Tenderness, Hernia, Mass, Organomegaly, Rebound - Rectal Exam Additional comments: perianal subcutaneous mass at 2'oclock position about 1 cm in diameter. tender to palpate, intact skin, no erythema, no wound/fistula, no discharge. - Extremities Exam Extremities Exam: Full ROM, Normal Capillary Refill, Normal Inspection. absent: Joint Swelling, Pedal Edema - Neurological Exam Neurological Exam: Alert, Awake - Psychiatric Exam Psychiatric exam: Normal Affect, Normal Mood - Skin Skin Exam: Dry, Intact, Normal Color, Warm Assessment and Plan - Assessment and Plan (Free Text) Assessment: 33 y/o male with no significant PMH presents to ED with perianal pain x5 days. Failed outpatient keflex treatment CT A/P: small perianal phlegmon at contains a smaller slightly eccentric abscess collection Patient in NAD, hemodynamically stable, afebrile, no leukocytosis, no open wound/fisutla Plan: -continue current managament cipro, flagyl, IVF -sitz bath, warm compressions, pain meds prn -regular diet -plan for discharge home later today. PO abx and outpatient follow up -further recs per Dr Stephanie Gonzales, DO
--- NOTE | 2018-12-03 09:38 | CP.PCM.CON ---
<Raymond Chavez - Last Filed: 12/03/18 12:12> History of Present Illness - History of Present Illness History of Present Illness: Infectious disease consult note: 33-year-old male with no past medical history presents to the emergency room with perianal pain. Patient states that his pain initially started 5 days ago and has gotten progressively worse. Pain is worse with walking and prolonged sitting. He has tried to take Motrin and cold compressions at home however has not alleviated his symptoms. He denies any prior trauma to the area. He did go to his PMD and was given Keflex however had no improvement over the past 3 days. He denies any fevers or chills. Infectious disease was consulted for perianal abscess and IV antibiotics management. 12 point ROS performed and negative other than stated above PMH: denied PSH: denied Meds: ibuprofen All: NKDA FH: father with DM, mom with breast CA SH: social drinks ETOH, smoker of 2 PP week, denied illicit drug use Review of Systems - Review of Systems All systems: reviewed and no additional remarkable complaints except Past Patient History - Past Social History Smoking Status: Current Some Days Smoker - CARDIAC Hx Cardiac Disorders: No - PULMONARY Hx Respiratory Disorders: No - NEUROLOGICAL Hx Neurological Disorder: No - HEENT Hx HEENT Problems: No Other/Comment: wears glasses - RENAL Hx Chronic Kidney Disease: No - ENDOCRINE/METABOLIC Hx Endocrine Disorders: No - HEMATOLOGICAL/ONCOLOGICAL Hx Blood Disorders: No - INTEGUMENTARY Hx Dermatological Problems: No - MUSCULOSKELETAL/RHEUMATOLOGICAL Hx Musculoskeletal Disorders: No Hx Falls: No - GASTROINTESTINAL Hx Gastrointestinal Disorders: No - GENITOURINARY/GYNECOLOGICAL Hx Genitourinary Disorders: No - PSYCHIATRIC Hx Substance Use: No - SURGICAL HISTORY Hx Surgeries: No - ANESTHESIA Hx Anesthesia: No Hx Anesthesia Reactions: No Hx Malignant Hyperthermia: No Meds Allergies/Adverse Reactions: Allergies Allergy/AdvReac Type Severity Reaction Status Date / Time No Known Allergies Allergy Verified 11/09/18 18:10 - Medications Medications: Current Medications Metronidazole (Flagyl) 500 mg in 100 mls @ 100 mls/hr IVPB Q8 [facility]; Protocol Last Admin: 12/03/18 05:07 Dose: 100 mls/hr Sodium Chloride (Sodium Chloride 0.9%) 1,000 mls @ 100 mls/hr IV .Q10H [facility] Last Admin: 12/03/18 05:19 Dose: 100 mls/hr Ibuprofen (Motrin Tab) 600 mg PO Q6H PRN PRN Reason: Pain, moderate (4-7) Ketorolac Tromethamine (Toradol) 15 mg IVP Q6H PRN PRN Reason: Pain, severe (8-10) Physical Exam - Constitutional Appears: No Acute Distress - Head Exam Head Exam: ATRAUMATIC, NORMOCEPHALIC - Eye Exam Eye Exam: EOMI - ENT Exam ENT Exam: Mucous Membranes Moist - Respiratory Exam Respiratory Exam: Clear to Auscultation Bilateral. absent: Wheezes - Cardiovascular Exam Cardiovascular Exam: REGULAR RHYTHM, +S1, +S2 - GI/Abdominal Exam GI & Abdominal Exam: Normal Bowel Sounds, Soft - Extremities Exam Extremities exam: Negative for: calf tenderness, pedal edema - Neurological Exam Neurological exam: Alert, CN II-XII Intact, Oriented x3 - Skin Skin Exam: Dry, Intact, Warm Additional comments: Perianal area, small area of erythema, no edema noted. Results - Vital Signs Recent Vital Signs: Last Vital Signs Temp 98.2 F 12/03/18 07:00 Pulse 59 L 12/03/18 07:00 Resp 20 12/03/18 07:00 BP 99/63 L 12/03/18 07:00 Pulse Ox 99 12/03/18 07:00 - Labs Result Diagrams: 12/02/18 10:20 12/02/18 10:20 Labs: Laboratory Results - last 24 hr 12/02/18 12/02/18 12/02/18 10:20 10:20 10:20 WBC 9.8 RBC 4.96 Hgb 15.6 Hct 45.3 MCV 91.3 MCH 31.5 MCHC 34.4 RDW 13.0 Plt Count 351 MPV 9.7 Neut % (Auto) 68.0 Lymph % (Auto) 20.7 L [place] % (Auto) 9.8 H Eos % (Auto) 1.4 L Baso % (Auto) 0.1 Lymph # (Auto) 2.0 [place] # (Auto) 1.0 H Eos # (Auto) 0.1 Baso # (Auto) 0.01 Absolute Neuts (auto) 6.65 H PT 11.9 INR 1.05 APTT 37.1 Sodium 138 Potassium 5.0 Chloride 104 Carbon Dioxide 26 Anion Gap 14 BUN 11 Creatinine 0.8 Est GFR ( Amer) > 60 Est GFR (Non-Af Amer) > 60 Random Glucose 95 Calcium 9.5 Total Bilirubin 0.4 AST 40 ALT 77 H Alkaline Phosphatase 66 Total Protein 8.0 Albumin 4.6 Globulin 3.4 Albumin/Globulin Ratio 1.3 Urine Color Urine Appearance Urine pH Ur Specific [place] Urine Protein Urine Glucose (UA) Urine Ketones Urine Blood Urine Nitrate Urine Bilirubin Urine Urobilinogen Ur Leukocyte Esterase Urine RBC Urine WBC Ur Epithelial Cells Urine Bacteria 12/02/18 10:30 WBC RBC Hgb Hct MCV MCH MCHC RDW Plt Count MPV Neut % (Auto) Lymph % (Auto) [place] % (Auto) Eos % (Auto) Baso % (Auto) Lymph # (Auto) [place] # (Auto) Eos # (Auto) Baso # (Auto) Absolute Neuts (auto) PT INR APTT Sodium Potassium Chloride Carbon Dioxide Anion Gap BUN Creatinine Est GFR ( Amer) Est GFR (Non-Af Amer) Random Glucose Calcium Total Bilirubin AST ALT Alkaline Phosphatase Total Protein Albumin Globulin Albumin/Globulin Ratio Urine Color Yellow Urine Appearance Clear Urine pH 6.0 Ur Specific [place] >= 1.030 Urine Protein Negative Urine Glucose (UA) Negative Urine Ketones Negative Urine Blood Large H Urine Nitrate Negative Urine Bilirubin Negative Urine Urobilinogen 0.2 Ur Leukocyte Esterase Negative Urine RBC 25 - 30 H Urine WBC 1 - 3 Ur Epithelial Cells None Urine Bacteria Mod Assessment & Plan - Assessment and Plan (Free Text) Assessment: 33-year-old male with no past medical history presents to the emergency room with perianal pain. CT Pelvis: small perianal phlegmon at contains a smaller slightly eccentric abscess collection. Infectious disease was consulted for perianal abscess and IV antibiotics management. D/c Flagyl; Started on zosyn Follow-up surgical recommendations Follow-up septic workup Continue to monitor Case and plan was reviewed and discussed with Dr. Aguilar <Rodrigo Aguilar - Last Filed: 12/03/18 13:58> Meds - Medications Medications: Current Medications Docusate Sodium (Colace) 100 mg PO DAILY [facility] Sodium Chloride (Sodium Chloride 0.9%) 1,000 mls @ 100 mls/hr IV .Q10H [facility] Last Admin: 12/03/18 05:19 Dose: 100 mls/hr Piperacillin Sod/Tazobactam Sod (Zosyn 3.375 In Ns 100ml) 100 mls @ 25 mls/hr IVPB Q8 [facility]; Protocol Stop: 12/10/18 14:01 Vancomycin HCl (Vancomycin 1gm) 1 gm in 250 mls @ 167 mls/hr IVPB Q12H [facility]; Protocol Ibuprofen (Motrin Tab) 600 mg PO Q6H PRN PRN Reason: Pain, moderate (4-7) Ketorolac Tromethamine (Toradol) 15 mg IVP Q6H PRN PRN Reason: Pain, severe (8-10) Results - Vital Signs Recent Vital Signs: Last Vital Signs Temp 98.2 F 12/03/18 07:00 Pulse 59 L 12/03/18 07:00 Resp 20 12/03/18 07:00 BP 99/63 L 12/03/18 07:00 Pulse Ox 99 12/03/18 07:00 - Labs Result Diagrams: 12/02/18 10:20 12/02/18 10:20 Assessment & Plan - Assessment and Plan (Free Text) Assessment: Infectious diseases Attending Physician Attestation Patient seen and examined, discussed with medical certification specialist. I have reviewed the patient's history of present illness, past medical, social, personal and family histories, pertinent physical exam findings, course so far in this hospital a dmission, pertinent laboratory and imaging results. I agree with the above findings, assessment and plan. In addition, started Vancomycin and Zosyn for patient with perianal abscess. Follow up surgery plans. Once it is drained, will follow up fluid cx. Will get HIV test due to his age.
[2018-12-03] MEDS ORDERED: Vancomycin 1gm in NS 250ml 1 GM/250 ML BAG IVPB SCH (14:00)
[2018-12-03] MEDS ORDERED: Piperacillin/Tazobact 3.375 gm 100 ML IVPB SCH (14:00)
--- NOTE | 2018-12-03 16:14 | CP.PCM.DIS ---
<Tiffany Sweeney - Last Filed: 12/03/18 17:47> Provider - Provider Date of Admission: 12/02/18 16:12 Attending physician: Benigno Hauser MD Primary care physician: Dr. Cisneros Consults: 12/02/18 13:14 General Surgery Consult Stat Comment: Consulting Provider: Conner Brown Consulting Physician: Conner Brown Reason for Consult: Perianal Abscess 12/03/18 08:15 Infectious Disease Consult Routine Comment: Consulting Provider: Rodrigo Aguilar Consulting Physician: Rodrigo Aguilar Reason for Consult: perianal abscess; abx management Time Spent in preparation of Discharge (in minutes): 35 Hospital Course - Lab Results Lab Results: Most Recent Lab Values WBC 9.8 10^3/uL (4.5-11.0) 12/02/18 10:20 RBC 4.96 10^6/uL (3.5-6.1) 12/02/18 10:20 Hgb 15.6 g/dL (14.0-18.0) 12/02/18 10:20 Hct 45.3 % (42.0-52.0) 12/02/18 10:20 MCV 91.3 fl (80.0-105.0) 12/02/18 10:20 MCH 31.5 pg (25.0-35.0) 12/02/18 10:20 MCHC 34.4 g/dl (31.0-37.0) 12/02/18 10:20 RDW 13.0 % (11.5-14.5) 12/02/18 10:20 Plt Count 351 10^3/uL (120.0-450.0) 12/02/18 10:20 MPV 9.7 fl (7.0-11.0) 12/02/18 10:20 Neut % (Auto) 68.0 % (50.0-68.0) 12/02/18 10:20 Lymph % (Auto) 20.7 % (22.0-35.0) L 12/02/18 10:20 Parke % (Auto) 9.8 % (1.0-6.0) H 12/02/18 10:20 Eos % (Auto) 1.4 % (1.5-5.0) L 12/02/18 10:20 Baso % (Auto) 0.1 % (0.0-3.0) 12/02/18 10:20 Lymph # (Auto) 2.0 (1.2-3.4) 12/02/18 10:20 Parke # (Auto) 1.0 (0.1-0.6) H 12/02/18 10:20 Eos # (Auto) 0.1 (0.0-0.7) 12/02/18 10:20 Baso # (Auto) 0.01 K/mm3 (0.0-2.0) 12/02/18 10:20 Absolute Neuts (auto) 6.65 (1.4-6.5) H 12/02/18 10:20 PT 11.9 SECONDS (9.4-12.5) 12/02/18 10:20 INR 1.05 12/02/18 10:20 APTT 37.1 Seconds (26.9-38.3) 12/02/18 10:20 Sodium 138 mmol/L (132-148) 12/02/18 10:20 Potassium 5.0 mmol/L (3.6-5.0) 12/02/18 10:20 Chloride 104 mmol/L (98-107) 12/02/18 10:20 Carbon Dioxide 26 mmol/L (21-33) 12/02/18 10:20 Anion Gap 14 (10-20) 12/02/18 10:20 BUN 11 mg/dL (7-21) 12/02/18 10:20 Creatinine 0.8 mg/dl (0.8-1.5) 12/02/18 10:20 Est GFR ( Amer) > 60 12/02/18 10:20 Est GFR (Non-Af Amer) > 60 12/02/18 10:20 Random Glucose 95 mg/dL (70-110) 12/02/18 10:20 Calcium 9.5 mg/dL (8.4-10.5) 12/02/18 10:20 Total Bilirubin 0.4 mg/dL (0.2-1.3) 12/02/18 10:20 AST 40 U/L (17-59) 12/02/18 10:20 ALT 77 U/L (7-56) H 12/02/18 10:20 Alkaline Phosphatase 66 U/L (38-126) 12/02/18 10:20 Total Protein 8.0 g/dL (5.8-8.3) 12/02/18 10:20 Albumin 4.6 g/dL (3.0-4.8) 12/02/18 10:20 Globulin 3.4 gm/dL 12/02/18 10:20 Albumin/Globulin Ratio 1.3 (1.1-1.8) 12/02/18 10:20 Urine Color Yellow (YELLOW) 12/02/18 10:30 Urine Appearance Clear (CLEAR) 12/02/18 10:30 Urine pH 6.0 (4.7-8.0) 12/02/18 10:30 Ur Specific Chandler >= 1.030 (1.005-1.035) 12/02/18 10:30 Urine Protein Negative mg/dL (<30 mg/dL) 12/02/18 10:30 Urine Glucose (UA) Negative mg/dL (NEGATIVE) 12/02/18 10:30 Urine Ketones Negative mg/dL (NEGATIVE) 12/02/18 10:30 Urine Blood Large (NEGATIVE) H 12/02/18 10:30 Urine Nitrate Negative (NEGATIVE) 12/02/18 10:30 Urine Bilirubin Negative (NEGATIVE) 12/02/18 10:30 Urine Urobilinogen 0.2 E.U./dL (<1 E.U./dL) 12/02/18 10:30 Ur Leukocyte Esterase Negative Noemi/uL (NEGATIVE) 12/02/18 10:30 Urine RBC 25 - 30 /hpf (0-2) H 12/02/18 10:30 Urine WBC 1 - 3 /hpf (0-6) 12/02/18 10:30 Ur Epithelial Cells None /hpf (0-5) 12/02/18 10:30 Urine Bacteria Mod /hpf (NONE) 12/02/18 10:30 - Hospital Course Hospital Course: Upon Admission 33yo male with no PMHx presented with perianal pain x 5 days. 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 The pain was exacerbated by walking or prolonged sitting and alleviated by motrin and cold compressions. Patient denied any trauma/infection, no prior similar symptoms. Patient was seen by his PMD who prescribed keflex with no improvement for the past 3 days. He admits to foul smelling urine for the past 2 weeks with no dysurea/urgency/frequency. Patient denied any focal symptoms, paresthesia, muscle weakness, fever, chills, CP, SOB, abdominal pain, changes in bowel movement, N/V/D, hematochezia, melena, hematuria. Hospital Course Patient admitted to med/surg. General surgery consulted. Pelvic CT revealed small perianal phlegmon containing smaller slightly eccentric abscess collection. Patient afebrile with no leukocytosis and no open wound/fistula. Surgery recommended sitz bath, warm compressions and prn pain medications. ID consulted who started patient on Vanc and Zosyn. Patient counseled on the importance of smoking cessation. Bowel regimen in place and patient tolerated good PO intake. Patient clinically improved, was afebrile, with no leukocytosis and was eager to go home. On day of discharge patient deemed medically optimized for discharge home. Discharge Instructions You are being discharged from [facility]. Please take the following antibiotics as prescribed: -Doxycycline 100mg 1 tab by mouth twice daily for 7 days -Augmentin 875 1 tab by mouth twice daily for 7 days Please continue Sitz baths. Please follow up with surgeon Dr. Brown within 7-10 days. Please also follow up with your PMD Dr. Cisneros within 7-10 days. If symptoms return please visit your nearest Emergency Room. Instructions discussed in detail with patient who understood and agreed Please note this is a d/c summary. For full hospital course please refer to EMR. Discharge Exam - Head Exam Head Exam: ATRAUMATIC, NORMOCEPHALIC - Additional Findings Additional findings: - Constitutional Appears: Non-toxic, No Acute Distress - Head Exam Head Exam: ATRAUMATIC, NORMAL INSPECTION, NORMOCEPHALIC - Eye Exam Eye Exam: EOMI, Normal appearance, PERRL. absent: Conjunctival injection, Scleral icterus - ENT Exam ENT Exam: Mucous Membranes Moist - Neck Exam Neck exam: Positive for: Full Rom, Normal Inspection. Negative for: Lymphadenopathy - Respiratory Exam Respiratory Exam: Clear to Auscultation Bilateral, NORMAL BREATHING PATTERN. absent: Accessory Muscle Use, Rales, Rhonchi, Wheezes, Respiratory Distress - Cardiovascular Exam Cardiovascular Exam: REGULAR RHYTHM, +S1, +S2 - GI/Abdominal Exam GI & Abdominal Exam: Normal Bowel Sounds, Soft. absent: Distended, Firm, Tenderness - Extremities Exam Extremities exam: Positive for: normal capillary refill, normal inspection, pedal pulses present. Negative for: pedal edema - Back Exam Back exam: NORMAL INSPECTION. absent: rash noted, tenderness - Neurological Exam Neurological exam: Alert, CN II-XII Intact, Oriented x3 - Psychiatric Exam Psychiatric exam: Normal Affect, Normal Mood - Skin Skin Exam: Dry, Intact, Normal Color, Warm Discharge Plan - Discharge Medications Prescriptions: Amoxicillin/Clavulanate [Augmentin 875 MG-125 MG] 1 tab PO BID 7 Days #14 tab RX: Doxycycline Hyclate [Doryx] 100 mg PO BID 7 Days #14 cap - Follow Up Plan Condition: GOOD Disposition: HOME/ ROUTINE Instructions: Anal Abscess and Fistula (DC), How to Do a Sitz Bath, Abscess (GEN) Additional Instructions: You are being discharged from [facility]. Please take the following antibiotics as prescribed: -Doxycycline 100mg 1 tab by mouth twice daily for 7 days -Augmentin 875 1 tab by mouth twice daily for 7 days Please continue Sitz baths. Please follow up with surgeon Dr. Brown within 7-10 days. Please also follow up with your PMD Dr. Cisneros within 7-10 days. If symptoms return please visit your nearest Emergency Room. Referrals: Daisha Cisneros DO [Doctor Osteopathy] - Conner Brown MD [Medical Doctor] - <Benigno Hauser - Last Filed: 12/03/18 19:04> Provider - Provider Date of Admission: 12/02/18 16:12 Attending physician: Benigno Hauser MD Consults: 12/02/18 13:14 General Surgery Consult Stat Comment: Consulting Provider: Conner Brown Consulting Physician: Conner Brown Reason for Consult: Perianal Abscess 12/03/18 08:15 Infectious Disease Consult Routine Comment: Consulting Provider: Rodrigo Aguilar Consulting Physician: Rodrigo Aguilar Reason for Consult: perianal abscess; abx management Hospital Course - Lab Results Lab Results: Micro Results 12/02/18 15:29 Blood Blood Culture - Preliminary NO GROWTH AFTER 24 HOURS 12/02/18 15:00 Blood Blood Culture - Preliminary NO GROWTH AFTER 24 HOURS Most Recent Lab Values WBC 9.8 10^3/uL (4.5-11.0) 12/02/18 10:20 RBC 4.96 10^6/uL (3.5-6.1) 12/02/18 10:20 Hgb 15.6 g/dL (14.0-18.0) 12/02/18 10:20 Hct 45.3 % (42.0-52.0) 12/02/18 10:20 MCV 91.3 fl (80.0-105.0) 12/02/18 10:20 MCH 31.5 pg (25.0-35.0) 12/02/18 10:20 MCHC 34.4 g/dl (31.0-37.0) 12/02/18 10:20 RDW 13.0 % (11.5-14.5) 12/02/18 10:20 Plt Count 351 10^3/uL (120.0-450.0) 12/02/18 10:20 MPV 9.7 fl (7.0-11.0) 12/02/18 10:20 Neut % (Auto) 68.0 % (50.0-68.0) 12/02/18 10:20 Lymph % (Auto) 20.7 % (22.0-35.0) L 12/02/18 10:20 Parke % (Auto) 9.8 % (1.0-6.0) H 12/02/18 10:20 Eos % (Auto) 1.4 % (1.5-5.0) L 12/02/18 10:20 Baso % (Auto) 0.1 % (0.0-3.0) 12/02/18 10:20 Lymph # (Auto) 2.0 (1.2-3.4) 12/02/18 10:20 Parke # (Auto) 1.0 (0.1-0.6) H 12/02/18 10:20 Eos # (Auto) 0.1 (0.0-0.7) 12/02/18 10:20 Baso # (Auto) 0.01 K/mm3 (0.0-2.0) 12/02/18 10:20 Absolute Neuts (auto) 6.65 (1.4-6.5) H 12/02/18 10:20 PT 11.9 SECONDS (9.4-12.5) 12/02/18 10:20 INR 1.05 12/02/18 10:20 APTT 37.1 Seconds (26.9-38.3) 12/02/18 10:20 Sodium 138 mmol/L (132-148) 12/02/18 10:20 Potassium 5.0 mmol/L (3.6-5.0) 12/02/18 10:20 Chloride 104 mmol/L (98-107) 12/02/18 10:20 Carbon Dioxide 26 mmol/L (21-33) 12/02/18 10:20 Anion Gap 14 (10-20) 12/02/18 10:20 BUN 11 mg/dL (7-21) 12/02/18 10:20 Creatinine 0.8 mg/dl (0.8-1.5) 12/02/18 10:20 Est GFR ( Amer) > 60 12/02/18 10:20 Est GFR (Non-Af Amer) > 60 12/02/18 10:20 Random Glucose 95 mg/dL (70-110) 12/02/18 10:20 Calcium 9.5 mg/dL (8.4-10.5) 12/02/18 10:20 Total Bilirubin 0.4 mg/dL (0.2-1.3) 12/02/18 10:20 AST 40 U/L (17-59) 12/02/18 10:20 ALT 77 U/L (7-56) H 12/02/18 10:20 Alkaline Phosphatase 66 U/L (38-126) 12/02/18 10:20 Total Protein 8.0 g/dL (5.8-8.3) 12/02/18 10:20 Albumin 4.6 g/dL (3.0-4.8) 12/02/18 10:20 Globulin 3.4 gm/dL 12/02/18 10:20 Albumin/Globulin Ratio 1.3 (1.1-1.8) 12/02/18 10:20 Urine Color Yellow (YELLOW) 12/02/18 10:30 Urine Appearance Clear (CLEAR) 12/02/18 10:30 Urine pH 6.0 (4.7-8.0) 12/02/18 10:30 Ur Specific Chandler >= 1.030 (1.005-1.035) 12/02/18 10:30 Urine Protein Negative mg/dL (<30 mg/dL) 12/02/18 10:30 Urine Glucose (UA) Negative mg/dL (NEGATIVE) 12/02/18 10:30 Urine Ketones Negative mg/dL (NEGATIVE) 12/02/18 10:30 Urine Blood Large (NEGATIVE) H 12/02/18 10:30 Urine Nitrate Negative (NEGATIVE) 12/02/18 10:30 Urine Bilirubin Negative (NEGATIVE) 12/02/18 10:30 Urine Urobilinogen 0.2 E.U./dL (<1 E.U./dL) 12/02/18 10:30 Ur Leukocyte Esterase Negative Noemi/uL (NEGATIVE) 12/02/18 10:30 Urine RBC 25 - 30 /hpf (0-2) H 12/02/18 10:30 Urine WBC 1 - 3 /hpf (0-6) 12/02/18 10:30 Ur Epithelial Cells None /hpf (0-5) 12/02/18 10:30 Urine Bacteria Mod /hpf (NONE) 12/02/18 10:30 - Hospital Course Hospital Course: See the H & P for further information. Pt to be discharged home. Will continue with Doxy and Augmentin.
== END 2018-12-03 18:30 | disposition home or self-care (01) | DRG 395 ==
LOC: ED 09:21 → ERH 16:12 → 5RNO 20:01
PROVIDERS: ADMIT Internal Medicine Nephrology; ATTEND Internal Medicine Nephrology
DX: K61.0 Anal abscess (principal); F17.200 Nicotine dependence, unspecified, uncomplicated; Z83.3 Family history of diabetes mellitus; Z80.3 Family history of malignant neoplasm of breast